=== PATIENT | male | born 1940 | race African-American/Black ===

== ENCOUNTER 2021-01-15 23:40 | Inpatient (IN) | payer MEDICARE ==
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
[2021-01-16] MEDS ORDERED: ULTRAM50 MG PO (06:03)
[2021-01-16] MEDS ORDERED: THEREMS-M1 TAB PO (06:04)
[2021-01-16] MEDS ORDERED: MIRALAX17 GM PO (06:06)
[2021-01-16] MEDS ORDERED: DONEPEZIL HCL5 MG PO (06:06)
[2021-01-16] MEDS ORDERED: COREG25 MG PO (06:09)
[2021-01-16] MEDS ORDERED: LIPITOR40 MG PO (06:10)
[2021-01-16] MEDS ORDERED: LOW DOSE ASPIRI81 M1 PO (06:11)
[2021-01-16] MEDS ORDERED: NORVASC5 MG PO (06:12)
[2021-01-16] MEDS ORDERED: VITAMIN D325 MC1 PO (06:13)
[2021-01-16 07:30] VITALS: BP 124/81
--- NOTE | 2021-01-16 07:30 | NUR ---
SARS-19 SWAB COLLECTED. PT TOLERATED WELL. PT WAS CALM WITH COLLECTION.
[2021-01-16 07:56] LABS: BASOPHILS 0.8 % (0-2); EOSINOPHILS 4.8 % (0-7); HEMATOCRIT 36.3 % (42.0-54.0); IMMATURE GRANULOCYTES 0.1 % (0-5); LYMPHOCYTE ABS# 2.98 10x3/uL (1.32-3.57); LYMPHOCYTES 40.7 % (15-50); MCH 30.1 pg (26.0-34.0); MCHC 33.1 g/dL (31.0-37.0); MEAN PLATELET VOLUME 11.9 fL (7.4-10.4); NEUTROPHIL ABS# 3.26 10x3/uL (1.78-5.38); NEUTROPHILS 44.6 % (40-80); PLATELET COUNT 169 10x3/uL (130-400); RBC 3.99 10x6/uL (4.20-6.10); RDW 14.7 % (11.5-14.5); WBC 7.3 10x3/uL (4.8-10.8)
[2021-01-16 08:00] VITALS: BP 101/54
[2021-01-16 08:39] LABS: SARS-CoV-2 ANTIGEN NEGATIVE- SARS-COV-2 (NEGATIVE)
[2021-01-16 08:46] LABS: CHOL - HDL RATIO 1.9 ratio (2.3-4.9); LDL-HDL RATIO 0.7 ratio (1.5-3.5)
[2021-01-16 09:28] LABS: ALBUMIN 3.3 g/dL (3.4-5.0); ALKALINE PHOSPHATASE 113 U/L (30-120); ALT (SGPT) 49 U/L (10-68); BILIRUBIN - TOTAL 0.64 mg/dL (0.2-1.3); CALC OSMOLALITY 288 mosm/kg (275-300); CALCIUM 8.9 mg/dL (8.5-10.1); CARBON DIOXIDE 27.8 mmol/L (21.0-32.0); CHLORIDE - SERUM 107 mmol/L (98-107); GLUCOSE 100 mg/dL (74-106); POTASSIUM - SERUM 3.8 mmol/L (3.5-5.1); PROTEIN - SERUM 6.9 g/dL (6.4-8.2); SODIUM 144 mmol/L (136-145); UREA NITROGEN 18 mg/dL (7-18); eGFR NON AFRICAN AMERICAN 76 mL/min (90-120)
[2021-01-16 12:54] LABS: BILIRUBIN NEGATIVE (NEGATIVE); KETONE NEGATIVE (NEGATIVE); NITRITE NEGATIVE (NEGATIVE); UROBILINOGEN NORMAL mg/dL (< 2)
--- NOTE | 2021-01-16 15:04 | NUR ---
NURSE SPOKE WITH JUAN DANIEL PT DAUGHTER IN LAW AT THIS TIME. SHE STATED SHE DID NOT RECIEVE A PHONE CALL FROM THE PREVIOUS SHIFT STATING HE ARRIVED SOME TIME DURING THE NIGHT. NURSE SPOKE WITH JUAN DANIEL PRIOR TO ADMISSION ON 01/15/21. SHE AND PT SON BRODERICK RICKS JR GAVE CONSENT TO NURSE FOR ADMISSION. NURSE GAVE PASSCODE OF 0733. SHE STATED FAMILY MEMBERS ARE EAGER TO SEE HOW HE IS DOING. NURSE EDUCATED ON PHONE TIMES AT THIS TIME. SHE VERBALIZIED UNDERSTANDING.
--- NOTE | 2021-01-16 15:29 | NUR ---
PT SITTING AND SOCIALIZING WITH PEERS. PT IS CALM AND COOPERATIVE. CONFUSION NOTED. ALERT TO SELF ONLY. REDIRECT AND REORIENT NEEDED. REDIRECT AND REORIENT NEEDED. CONTS TO EXPERIENCE LEG CRAMPS. ACTIVE ROM PROVIDED. PT RIGHT KNEE POPPED. DENIES PAIN. CAN MAKE NEEDS KNOWN. AMBULATES. COMPLIANT WITH VITALS AND ASSESSMENTS. WILL CONT PLAN OF CARE. URINE COLLECTED BEDSIDE WITH CLEAN TECHINQUE.
[2021-01-16 20:00] VITALS: BP 133/74
--- NOTE | 2021-01-17 01:56 | NUR ---
B)RECEIVED PATIENT IN HIS ROOM. DID COME AND SIT WITH PEERS OUTSIDE THE NURSE'S STATION. ORIENTED TO SELF ONLY. DIFFICULTY FOLLOWING TOPIC OF CONVERSATION. 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 AMBULATORY ON THE UNIT. I)ADMINISTER MEDS AND MONITOR COMPLIANCE. REORIENT NEEDED. R)MED COMPLIANT. POOR REORIENTATION . DIFFICULTY FOLLOWING TOPIC OF CONVERSATION AND PROCESSING INFORMATION. NO AGGRESSION NOTED THIS SHIFR. P)CONTINUE POC AND PROVIDE SAFE ENVIRONMENT.
[2021-01-17 07:30] VITALS: BP 111/60
--- NOTE | 2021-01-17 08:00 | NUR ---
RECEIVED PATIENT IN BED WITH EYES OPEN. PATIENT IS CALM AND COOPERATIVE WITH ASSESSMENT AT THIS TIME. CONFUSION NOTED. PATIENT IS AWAKE AND ALERT TO SELF ONLY. NO AGGRESSION OR BEHAVIORS NOTED AT THIS TIME. REDIRECT AND REORIENT NEEDED. PRESCRIBED MEDICATIONS PROVIDED ORDERED. MED COMPLIANT AT THIS TIME. PATIENT IS ABLE TO MAKE NEEDS KNOWN TO STAFF. PATIENT IS ABLE TO AMBULATE. PATIENT IS CONTINENT. FALL PRECAUTIONS IN PLACE FOR SAFETY. WILL CONTINUE PLAN OF CARE.
--- NOTE | 2021-01-17 19:30 | NUR ---
RECEIVED IN BEDROOM. RESTING IN BED WITH EYES OPEN. STATES HE IS CONFUSED AND DOESNT KNOW WHERE HE IS.CALM AND COOPERATIVE WITH CARE AND ASSESSMENT. NO SIGNS OF AGGRESSION. REDIRECT AND REORIENT NEEDED. CONTINUES TO REST QUIETLY IN BED. CONTINUE PLAN OF CARE.
[2021-01-17 20:00] VITALS: BP 129/74
[2021-01-18 08:08] LABS: RAPID PLASMA REAGIN Non Reactive (Non Reactive)
[2021-01-18 08:21] VITALS: BP 135/66
[2021-01-18 14:42] VITALS: Wt 94.7 kg
[2021-01-18 20:00] VITALS: BP 110/67
--- NOTE | 2021-01-18 22:57 | NUR ---
RECEIVED IN BEDROOM. RESTING QUIETLY IN BED WITH EYES OPEN. CONFUSED. CALM AND COOPERATIVE WITH CARE AND ASSESSMENT. NO SIGNS OF AGGRESSION. REDIRECT AND REORIENT NEEDED. RESTING IN BED WITH EYES CLOSED AT THIS TIME. CONTINUE PLAN OF CARE.
--- NOTE | 2021-01-19 14:24 | NUR ---
RECEIVED PATIENT SITTING IN HALLWAY IN A CHAIR BY NURSES STATION. AWAKE AND ALERT TO PERSON. CONFUSION NOTED. CALM AND OOPERATIVE WITH ASSESSMENT AT THIS TIME. PRESCRIBED MEDICATION PROVIDED ORDERED. MED COMPLIANT AT THIS TIME. PATIENT HAS LITTLE INSIGHT INTO HIS SITUATION AT THIS TIME. REDIRECT AND REORIENT NEEDED. NO AGGRESSION NOTED. FALL PRECAUTIONS IN PLACE FOR SAFETY. WILL CPOC.
[2021-01-19 20:00] VITALS: BP 108/68
--- NOTE | 2021-01-19 23:23 | NUR ---
B)RECEIVED PATIENT LYING IN BED. ORIENTED TO SELF ONLY. GOOD EYE CONTACT. EDEMA TO LOWER EXTS AND WHEN NURSE REMOVED HIS SOCKS HE RELATED "THOSE ARE MY GIRLFRIENDS SOCKS. 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 COOPERATIVE WITH STAFF REQUEST. I)ADMINISTER MEDS AND MONITOR COMPLIANCE. REORIENT NEEDED. R)MED COMPLIANT. POOR REORIENTATION. DIFFICULTY WITH COMPREHENDING PROCESSING AND RETAINING INFORMATION. P)CONTINUE POC AND PROVIDE SAFE ENVIRONMENT.
[2021-01-20 08:19] VITALS: BP 110/76
--- NOTE | 2021-01-20 10:54 | NUR ---
Nutrition Re-Assessment Diet: Regular TAD Large portions PO intake: ~93% average x last 9 meals Last BM: 01/17/21 Wt: 180# (01/18/21); Admit Wt: 181# (01/16/21) Meds and labs reviewed Estimated nutrition needs: 1625-2050cal (20-25kcal/kg Act), 65-82gms protein (0.8-1), 2050-2450mL fluid (or per MD) Nutrition diagnosis: Potential for inadequate energy intake r/t AMS and advanced age. Nutrition goals: -PO intake to continue >75% meals -Meet fluid needs -Stable weight DHS Recommendations/Interventions: -Recommend continue current diet. Will continue to honor food preferences within diet restrictions. -RD will follow-up within 7 days.
--- NOTE | 2021-01-20 16:31 | NUR ---
pt confused. alert to self only. pt is calm and cooperative with staff. easy to redirect. pt is compliant with meds, vitals and assessments. no aggressive behavior noted. pt does not touch wet area noted to neck. nurse will clean area and apply a bandage to area. ambulates. requires assistance with adls. will cont plan of care. will cont plan of care.
[2021-01-20 20:00] VITALS: BP 97/58
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
[2021-01-21 09:17] VITALS: BP 116/73
--- NOTE | 2021-01-21 11:26 | NUR ---
Another patient walked up to this patient and stood beside him and this patient stated "What do you want?..get outta here"!
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
--- NOTE | 2021-01-21 15:20 | NUR ---
pt sitting on couch at this time. pt is calm and alert to self only. confusion noted. paranoid and suspicious of one other pt. constantly redirect pt from other male. no aggressive behavior noted. verbally aggressive statements noted. redirected pt behavior. compliant with meds, vitals and assessments. can make needs known. ambulates. Tina Haskins rn redressed wound to pt neck. drainage noted. pt denies pain. will cont plan of care.
[2021-01-21 19:27] VITALS: BP 112/63
--- NOTE | 2021-01-22 04:24 | NUR ---
B)RECEIVED PATIENT SITTING IN THE DAYROOM WITH PEERS. ORIENTED TO SELF ONLY. INTERACTING HOWEVER IS AVOIDANT OF 1127. DELUSIONAL AND REPORTS SOME OF THE CLOTHES IN HIS ROOM BELONG TO HIS GIRLFRIEND. COOPERATIVE AND PLEASANT. I)ADMINISTER MEDS AND MONITOR COMPLIANCE. REORIENT NEEDED. R)MED COMPLIANT. POOR REORIENTATION DUE TO IMPAIRED ABILITY TO COMPREHEND, PROCESS AND RETAIN INFORMATION. P)CONTINUE POC AND PROVIDE SAFE ENVIRONMENT.
[2021-01-22 08:48] VITALS: BP 96/67
--- NOTE | 2021-01-22 13:27 | NUR ---
PT SITTING NEAR OTHER PTS AT THIS TIME. PT IS CALM AND COOPERATIVE WITH STAFF. CONFUSION NOTED. ALERT TO SELF ONLY. REDIRECT AND REORIENT NEEDED. NO AGGRESSIVE STATEMENTS NOTED. AMBUALTES. CAN MAKE SOME NEEDS KNOWN. CONT TO CLEAN AND DRESS AREA TO RIGHT SIDE OF NECK. PT IS COMPLIANT WITH WHOLE MEDS, VITALS AND ASSESSMENTS. NO AGGRESSIVE BEHAVIOR NOTED. PT TENDS TO ISOLATE AND CAN BE DELUSIONAL ABOUT CERTAIN SITUATIONS WHEN ASKED. CONT TO REORIENT AND REDIRECT. WILL CONT PLAN OF CARE.
--- NOTE | 2021-01-22 16:47 | NUR ---
blood pressure: 123/81. p: 96
[2021-01-22 20:08] VITALS: BP 125/74
--- NOTE | 2021-01-22 20:54 | NUR ---
PT IS ALERT AND ORIENTED TO SELF ONLY. RECEIVED IN HIS ROOM CONFUSED AND PACING AT TIMES. COOPERATIVE WITH STAFF. COMPLIANT WITH ALL MEDICATIONS. EASY TO REDIRECT BUT REQUIRES CONSTANT REDIRECTION. ABCESS ON RIGHT SIDE OF HIS NECK IS DRAINING AND DRESSING IS FOUND IN THE FLOOR. HE STATES "I TOOK IT OFF" DECLINES A NEW DRESSING. ABLE TO VOICE NEEDS AND WANTS. MONITOR FOR SAFETY.
[2021-01-23 07:35] VITALS: BP 118/80
--- NOTE | 2021-01-23 12:58 | NUR ---
SOCIALIZING WITH PEERS.ORIENTED TO SELF ONLY.ATTEMPTS TO REORIENT WITH POOR RESULTS.COMPLIANT WITH MEDS AND SELF.NO AGGRESSION OBSERVED TODAY.WILL CONTINUE WITH CURRENT PLAN OF CARE,MONITOR FOR CHANGES AND SAFETY.
[2021-01-23 19:52] VITALS: BP 99/51
--- NOTE | 2021-01-23 21:26 | NUR ---
PT IS ALERT AND ORIENTED TO SELF ONLY. RECEIVED IN ROOM RESTING IN BED WITH EYES OPEN. CALM AND COOPERATIVE WITH STAFF. EXPRESSES APPRECIATION FOR CARE. COMPLIANT WITH ALL MEDICATIONS. DRESSING STILL INTACT TO RIGHT SIDE OF NECK. EASY TO REDIRECT. NO AGGRESSION NOTED AT THIS TIME. MONITOR FOR SAFETY.
[2021-01-24 07:30] VITALS: BP 111/75
--- NOTE | 2021-01-24 08:30 | NUR ---
RECEIVED IN PATIENT ROOM. SITTING ON SIDE OF BED. CALM AND COOPERATIVE WITH CARE AND ASSESSMENT. NO AGGRESSIVE BEHAVIORS THIS MORNING. SOCIALIZES AND TRIES TO HELP OTHER PATIENTS. REDIRECT AND REORIENT NEEDED. EATING BREAKFAST AT THIS TIME. CONTINUE PLAN OF CARE.
--- NOTE | 2021-01-24 14:05 | NUR ---
Patient rec'd this am sitting up in the hallway. He sat with the group this morning and participated well in group. He becomes easily upset and nervous when the other patients are uncooperative. He has limited eye vision and is [place]. 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 It weeps blood and clear fluids at times,Dressing changes are done q. shift and PRN. He, per observation, likes to pick at the dressings and tape till they fall off. He is med compliant and takes meds whole. He is A/O with some confusion and aggitation at times. He is directable and can be redirectable. He has been calm but did demonstrate a moment of aggravation with another patient and that patients alarm.
--- NOTE | 2021-01-24 19:40 | NUR ---
RECEIVED IN DAYROOM. WALKING ABOUT SOCAILIZING WITH STAFF AND PEERS. CALM AND COOPERATIVE WITH CARE AND ASSESSMENT. NO SIGNS OF AGGRESSION. REDIRECT AND REORIENT NEEDED. SITTING IN A CHAIR IN HALLWAY WITH PEERS AT THIS TIME. CONTINUE PLAN OF CARE.
[2021-01-24 20:20] VITALS: BP 112/58
[2021-01-25 08:00] VITALS: BP 115/67
--- NOTE | 2021-01-25 15:57 | NUR ---
CONFUSED AND DISORIENTED.QUITE,KEEPS TO SELF MOST OF THE TIME,BUT IS COMPLIANT WITH STAFF AND MEDS.MEDS TAKEN WHOLE.AMBULATES WITH FAIRLY STEADY GAIT.NO AGGRESSION OBSERVED.WILL CONTINUE WITH CURRENT PLAN OF CARE,MONITOR FOR CHANGES AND SAFETY.
--- NOTE | 2021-01-25 19:35 | NUR ---
B)RECEIVED PATIENT SITTING OUTSIDE THE NURSE'S STATION. ORIENTED TO SELF ONLY. SOCIALIZING WITH PEERS. NO INSIGHT INTO THE REASON FOR HOSPITALIZATION. CALM AND COOPERATIVE WITH STAFF. I)ADMINISTER MEDS AND MONTOR COMPLIANCE. REORIENT NEEDED. R)MED COMPLIANT. POOR REORIENTATION DUE TO IMPAIRED ABILITY TO RETAIN INFORMATION. P)CONTINUE POC AND PROVIDE SAFE ENVIRONMENT.
[2021-01-25 20:00] VITALS: BP 101/67
[2021-01-26 08:02] VITALS: BP 105/73
--- NOTE | 2021-01-26 17:34 | NUR ---
CONFUSED,ORIENTED TO SELF.IS COMPLIANT WITH STAFF AND MEDS.NO AGGRESSION OBSERVED.WILL CONTINUE WITH CURRENT PLAN OF CARE,MONITOR FOR CHANGES AND SAFETY.
[2021-01-26 20:15] VITALS: BP 101/62
--- NOTE | 2021-01-27 03:04 | NUR ---
B) Patient is alert and oriented to self, very confused , calm and cooperative, I) Administered scheduled medications as ordered, monitored for safety, showered patient, R) Mediation compliant, resting quietly in his bed now. P) Continue plan of care.
[2021-01-27 08:00] VITALS: BP 95/55
--- NOTE | 2021-01-27 08:11 | NUR ---
Error in documentation on the EMAR. BP meds not given this am as this am BP was read as 95/55.
--- NOTE | 2021-01-27 10:25 | NUR ---
Nutrition Re-Assessment Diet: Regular TAD large portions PO intake: 75-100% Last BM: 01/26/21 x 2 Wt: 175.6# (01/24/21); Admit Wt: 181# (01/16/21)- noted -5.4# wt change. PO intake has been adequate. Meds and labs reviewed Estimated nutrition needs: 1625-2050cal (20-25kcal/kg Act), 65-82gms protein (0.8-1gms/kg), 2050-2450mL fluid (or per MD) Nutrition diagnosis: Potential for inadequate energy intake r/t AMS and advanced age. Nutrition goals: -PO intake >75% meals -Meet fluid needs -Stable weight DHS Recommendations/Interventions: -Recommend continue current diet. Will continue to honor food preferences within diet restrictions. -RD will follow-up within 7 days.
--- NOTE | 2021-01-27 14:52 | NUR ---
Rec'd patient this am up in [address] in a reclining w/c. He is lying with his eyes closed and snoring. He is med compliant and takes meds whole. He is offered Glucerna prn and he will consume 100% of supplement. He is a/o times 1 to person . He has shown no aggressive behaviors today but has sat and slept most of the day. He is redirectable and directable most of the time. He particpated very little with educational group today.
--- NOTE | 2021-01-27 15:22 | PN ---
PATIENT:BRODERICK RICKS MEDICAL RECORD: [id number] LOCATION:[facility] Camacho ADMISSION DATE: 01/15/21 PROGRESS NOTE DATE OF SERVICE: 01/26/2021 SUBJECTIVE: The patient's case was discussed with staff. He has no new complaint. OBJECTIVE: The patient is disorganized and only oriented to person. He is eating and sleeping reasonably well. ASSESSMENT: Dementia. PLAN: Current medicines and therapies have been reviewed and will be maintained. I am going to discontinue the Geodon secondary to the improvement in his behaviors. TRANSINT:[id number] Voice Confirmation ID: [id number] DOCUMENT ID: [id number] FAIZAN BROWN MD at 1522 CC: [id number] DICTATION DATE: 01/26/21 1611 PACKAGING SUPERVISOR: 01/27/21 [address] [facility] [address] [place] [address]
--- NOTE | 2021-01-27 15:22 | PN ---
PATIENT:BRODERICK RICKS MEDICAL RECORD: [id number] LOCATION:[facility] Camacho ADMISSION DATE: 01/15/21 PROGRESS NOTE DATE OF SERVICE: 01/25/2021 SUBJECTIVE: The patient's case was discussed with staff. He has no new complaint. OBJECTIVE: The patient is sleeping reasonably well. He has limited insight about his situation. He has not been aggressive today. ASSESSMENT: Dementia. PLAN: Current medicines have been reviewed. The patient's BuSpar will be discontinued. TRANSINT:[id number] Voice Confirmation ID: [id number] DOCUMENT ID: [id number] FAIZAN BROWN MD at 1522 CC: [id number] DICTATION DATE: 01/25/21 1505 SHEET ROCK SANDER: 01/27/21 0033 ADM IN [facility] [address] [place] [address]
--- NOTE | 2021-01-27 15:24 | NUR ---
Area to right side of neck dressed with a non-adhereing dressing and taped in place. The area resembles calliflower and it has reddened areas and then areas inside it that bleed bright blood. He also has an area to both sides of his face. He denies tenderness but says they drain "alot"'
[2021-01-27 20:00] VITALS: BP 126/76
--- NOTE | 2021-01-27 21:19 | NUR ---
PT IS ALERT AND ORIENTED TO SELF AND PLACE. RECEIVED IN DAYROOM SOCIALIZING WITH PEERS. CALM AND COOPERATIVE WITH STAFF. EXPRESSES APPRECIATION FOR CARE TO STAFF MEMBERS. NO AGGRESSION NOTED. COMPLIANT WITH ALL MEDICATIONS. PROVIDED HS SNACK AND SUPPLEMENT. EASY TO REDIRECT. MONITOR FOR SAFETY.
--- NOTE | 2021-01-28 11:29 | NUR ---
ALERT ,CALM, COOPERATIVE, NO AGGRESSION NOTED THUS FAR THIS SHIFT. MEDS ADMIN PER ORDERS WITH NO ADVERSE REACTION NOTED. TAKES MEDS WHOLE WITHOUT DIFFICULTY. CONTINUE PLAN OF CARE OUTLINED.
[2021-01-28 11:58] VITALS: BP 124/67
--- NOTE | 2021-01-28 15:24 | PN ---
PATIENT:BRODERICK RICKS MEDICAL RECORD: [id number] LOCATION:ITZEL HernandezBritniChristine ADMISSION DATE: 01/15/21 PROGRESS NOTE DATE OF SERVICE: 01/27/2021 SUBJECTIVE: The patient's case was discussed with staff. He has no new complaint. OBJECTIVE: The patient is in good behavioral control. He is sleeping and eating well. His antipsychotic medications have been stopped for 2 days with no apparent return of the aggressive behaviors. His Aricept is going to be increased to 10 mg at bedtime. TRANSINT:[id number] Voice Confirmation ID: [id number] DOCUMENT ID: [id number] FAIZAN BROWN MD at 1524 CC: [id number] DICTATION DATE: 01/27/21 1645 BELLHOP: 01/28/[address] [facility] [address] [place] [address]
[2021-01-28 20:00] VITALS: BP 102/63
--- NOTE | 2021-01-28 20:54 | NUR ---
RECEIVED PATIENT IN DAYROOM SITTING CALMLY WITH OTHER PATIENTS, PLEASANT, COMPLIANT WITH MEDS, NO ADVERSE REACTION NOTED TO MEDS. ABLE TO MAKE ALL NEEDS AND CONCERNS KNOWN. WILL FOLLOW POC
[2021-01-29 08:04] VITALS: BP 98/68
--- NOTE | 2021-01-29 10:18 | NUR ---
Rec'd this am up ambulatory in [facility]. He is med compliant and takes his meds whole without difficulty. He is A/O times 2 to person and situation. He has shown no signs of aggression to staff or patients so far this am. He becomes easily upself at times when other patients are loud or there is a lot of noise. He has been calm and cooperative this am. He has sat in group this morning and napped, quietly. 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 The ulcer to the neck to large and califlower looking with areas of raw tissue with can become bloody at times. area is cleaned and covered with a dry dressing q. shift and as needed.
[2021-01-29 11:32] VITALS: BP 98/68
[2021-01-29 20:00] VITALS: BP 96/46
--- NOTE | 2021-01-29 23:14 | NUR ---
RECEIVED PATIENT IN DAYROOM SITTING CALMLY AND QUIETLY AMONG OTHER PATIENTS, HE IS CONFUSED, COMPLIANT WITH MEDS, NO AGGRESSION NOTED. WILL FOLLOW POC
[2021-01-30 10:36] VITALS: BP 119/73
--- NOTE | 2021-01-30 11:13 | NUR ---
PT SITTING AT THE TABLE QUIET AT THIS TIME. CALM AND COOPERATIVE. PT IS FRIENDLY WITH STAFF. CONFUSED. ALERT TO SELF ONLY. REDIRECT AND REORIENT NEEDED. CAN MAKE NEEDS KNOWN. NO AGGRESSIVE BEHAVIOR NOTED. COMPLIANT WITH ALL MEDS, VITALS AND ASSESSMENTS. AMBULATES. WILL CONT PLAN OF CARE.
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
--- NOTE | 2021-01-30 13:56 | NUR ---
Alert, calm, cooperative, quite confused. Meds admin per orders with no adverse reaction. No aggression noted, quite pleasant. Very poor short-term memory. Stated that he was from [place], [place] but was unable to say where in [facility] was located. Continue POC, monitoring for aggression.
[2021-01-30 20:00] VITALS: BP 127/50
--- NOTE | 2021-01-31 00:20 | NUR ---
B)RECEIVED PATIENT AT NURSE'S STATION RELATING I'M GOING TO MY ROOM" AND WAS SMILING. CONFUSED AND DISORIENTED. INTERACTIVE WITH PEERS HOWEVER AT TIMES WILL STAY IN HIS ROOM. LABILE BEHAVIOR. WILL BE COOPERATIVE THEN WILL MAKE THREATENING GESTURES WITH REDIRECTION. INCONTINENT AND CHANGES CLOTHES THROWING WET ONES IN THE FLOOR WOTHOUT ALERTING STAFF. FORGETFUL IE ASKS NURSE WHERE IS HIS CLOTHES. NURSE INFORMED PATIENT SHE HAD TAKEN THEM TO HIS ROOM AND ASKED IF HE HAD WET HIMSELF AND CHANGED CLOTHES. PATIENT DENIED CHANGING CLOTHES TODAY. ALL CLOTHES WERE IN THE LAUNDRY. I)ADMINISTER MEDS AND MONITOR COMPLIANCE. ENCOURAGE PATIENT TO LET STAFF KNOW WHEN HE NEEDS CLEAN INCONTINENT BRIEFS OR CLOTHES. R)MED COMPLIANT. AGREES TO LET STAFF KNOW HOWEVER WHEN HIS ROOM IS CHECKED HE WILL HAVE THROWN SOILED CLOTHING IN THE BATHROOM FLOOR OR IN A PAPER SACK. ALSO URINE NOTED IN THE FLOOR. P)CONTINUE POC AND PROVIDE SAFE ENVIRONMENT.
[2021-01-31 07:30] VITALS: BP 115/75
--- NOTE | 2021-01-31 17:36 | NUR ---
RECEIVED IN PATIENT ROOM. GETTING READY TO START THE DAY. CALM AND COOPERATIVE WITH CARE AND ASSESSMENT. NO AGGRESSIVE BEHAVIOR. REDIRECT AND REORIENT NEEDED. EATING DINNER AT THIS TIME. CONTINUE PLAN OF CARE.
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
--- NOTE | 2021-01-31 23:07 | NUR ---
RECEIVED IN HALLWAY OUTSIDE OF NURSES STATION. SOCIAL WITH PEERS. CALM AND COOPERATIVE WITH CARE AND ASSESSMENT. NO SIGNS OF AGGRESSION. REDIRECT AND REORIENT NEEDED. RESTING IN BED WITH EYES CLOSED AT THIS TIME. CONTINUE PLAN OF CARE.
[2021-01-31 23:36] VITALS: BP 127/69
[2021-02-01 07:30] VITALS: BP 122/77
--- NOTE | 2021-02-01 12:15 | NUR ---
RECEIVED IN PATIENT ROOM. SITTING ON SIDE OF BED. CALM AND COOPERATIVE WITH CARE AND ASSESSMENT. NO AGGRESSIVE BEHAVIOR TODAY. DOES GET AGITATED WITH OTHER CONFUSED WANDERING PATIENTS. REDIRECT AND REORIENT NEEDED. EATING LUNCH AT THIS TIME. CONTINUE PLAN OF CARE.
--- NOTE | 2021-02-01 19:34 | NUR ---
RECEIVED IN HALLWAY. SITTING IN A CHAIR WITH PEERS AT HIS SIDE. SOCIAL. CALM AND COOPERATIVE WITH CARE AND ASSESSMENT. NO SIGNS OF AGGRESSION. REDIRECT AND REORIENT NEEDED. CONTINUES TO SIT IN HALLWAY WITH PEERS. CONTINUE PLAN OF CARE.
[2021-02-01 23:05] VITALS: BP 113/55
[2021-02-02 08:00] VITALS: BP 131/74; BP 95/65
--- NOTE | 2021-02-02 09:08 | NUR ---
REC'D PT IN HALLWAY SOCIALIZING WITH PEERS. AWAKE AND ALERT TO PERSON ONLY. CALM AND COOPERATIVE WITH ASSESSMENT. PRESCRIBED MEDICATIONS PROVIDED ORDERED. MED COMPLIANT. REDIRECT AND REORIENT NEEDED. NO AGGRESSION NOTED AT THIS TIME. FALL PRECAUTIONS IN PLACE. WILL CPOC.
--- NOTE | 2021-02-02 10:48 | PN ---
PATIENT:BRODERICK RICKS MEDICAL RECORD: [id number] LOCATION:ITZEL Camacho ADMISSION DATE: 01/15/21 PROGRESS NOTE DATE OF SERVICE: 01/28/2021 SUBJECTIVE: The patient's case was discussed with staff. He has no new complaint. OBJECTIVE: The patient is in good behavioral control with limited insight about his situation. He does tolerate his medicines well. ASSESSMENT: Dementia. PLAN: Current medicines have been reviewed and will be maintained. Long-term prognosis is guarded. TRANSINT:[id number] Voice Confirmation ID: [id number] DOCUMENT ID: [id number] FAIZAN BROWN MD at 1048 CC: [id number] DICTATION DATE: 01/28/[address] REPORTER: 01/28/21 1654 ADM IN [facility] [id number] [place] [address]
--- NOTE | 2021-02-02 21:05 | NUR ---
RECEIVED IN HALLWAY OUTSIDE OF NURSES STATION. CALM AND COOPERATIVE WITH CARE AND ASSESSMENT. NO SIGNS OF AGGRESSION. REDIRECT AND REORIENT NEEDED. RESTING QUIETLY IN BED AT THIS TIME. CONTINUE PLAN OF CARE.
[2021-02-02 21:41] VITALS: BP 112/75
[2021-02-03 08:00] VITALS: BP 157/64
--- NOTE | 2021-02-03 10:07 | NUR ---
Nutrition Re-Assessment Diet: Regular Large portions PO intake: 100% x last 12 meals Last BM: 02/02/21 Wt: 179# (01/31/21); Admit Wt: 181# (01/16/21) Meds and labs reviewed Estimated nutrition needs: 1625-2050cal (20-25kcal/kg Act), 65-82gms protein (0.8-1gms/kg), 2050-2450mL fluid (or per MD) Nutrition diagnosis: Potential for inadequate energy intake r/t AMS and advanced age. Nutrition goals: -PO intake =/>75% meals -Meet fluid needs -Stable weight DHS Recommendations/Interventions: -Recommend continue current diet. Will continue to honor food preferences. -Will continue to monitor PO intake and wt trend. -RD will follow-up within 7 days.
--- NOTE | 2021-02-03 12:41 | NUR ---
Rec'd patient this am sitting up in a chair in hallway. He is doing well. He is ambulatory. He is med compliant and took meds whole without difficulty. He is a/o to person, place, and situation but often will become confused with simple changes. He is most of the time calm and cooperative but will refuse ADL care/assistance. He has not demonstarted any aggressive or combative behaviors this am. He participated and sat in group/activities this am. He participated some but sat and napped. He is directable and redirectable. He has a large, bloody area to his right neck, a smaller abrased, open area under his right eye and an abrased,open area to his left cheek that resembles skin CA. areas cleansed with Normal saline, pat dried and covered with mepilex. Patient denies pain to areas.
--- NOTE | 2021-02-03 12:46 | PN ---
PATIENT:BRODERICK RICKS MEDICAL RECORD: [id number] LOCATION:[facility] ADMISSION DATE: 01/15/21 PROGRESS NOTE DATE OF SERVICE: 02/02/2021 SUBJECTIVE: The patient's case was discussed with staff. He has no new complaint. OBJECTIVE: The patient is calm and cooperative. He has no thoughts of harming himself or others. ASSESSMENT: Dementia. PLAN: The patient's Zoloft will be increased slightly. I anticipate he can be transitioned out of the hospital soon. TRANSINT:[id number] Voice Confirmation ID: [id number] DOCUMENT ID: [id number] FAIZAN BROWN MD at 1246 CC: [id number] DICTATION DATE: 02/02/21 164 ATTENDING ANESTHESIOLOGIST: 02/02/212006 ADM IN [facility] [address] [place] [address]
[2021-02-03] MEDS ORDERED: DONEPEZIL HCL10 MG PO (17:22)
[2021-02-03] MEDS ORDERED: ZOLOFT50 MG PO (17:22)
[2021-02-03] MEDS ORDERED: KLONOPIN0.5 MG PO (17:22)
[2021-02-03] MEDS ORDERED: VITAMIN D PO (17:23)
[2021-02-03] MEDS ORDERED: VITAMIN B-121000 MCG PO (17:23)
[2021-02-03] MEDS ORDERED: THERAGRAN M [BK1 TAB PO (17:23)
[2021-02-03 20:00] VITALS: BP 100/53
--- NOTE | 2021-02-04 02:43 | NUR ---
B)RECEIVED PATIENT LYING IN BED. ORIENTED TO SELF ONLY. PATIENT DID COME AND SIT OUTSIDE THE NURSE'S STATION AND WAS INTRACTIVE. CALM AND COOPERATIVE. I)ADMINISTER MEDS AND MONITOR COMPLIANCE. REORIENT NEEDED. R)MED COMPLIANT. POOR REORIENTATION DUE TO IMPAIRED ABILITY TO COMPREHEND, PROCESS AND RETAIN INFORMATION. P)CONTINUE POC AND PROVIDE SAFE ENVIRONMENT.
[2021-02-04 09:29] VITALS: BP 99/66
--- NOTE | 2021-02-04 10:45 | NUR ---
corrections caseworker contacted [id number], Steffanie, to discuss discharge plans. Cha Smith will orange picking supervisor patient on Monday or Monday. corrections caseworker will know by the end of the day to confirm pickup time. No other needs were voiced at this time. Steffanie voiced gratitude for services.
--- NOTE | 2021-02-04 14:06 | NUR ---
Rec'd patient this am ambulatory in [facility]. He is med compliant and takes meds whole. He is a/o times 3 to person, place, and situation. He sat in group/activities this am. He is directable and redirectable. 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 Areas covered daily with non stick telfa but patient will sat and pick the dressings off. He has been calm and cooperative. He has confusion. He can become aggressive when others, he feels,. he has been "pushed to hard".
--- NOTE | 2021-02-04 15:14 | PN ---
PATIENT:BRODERICK RICKS MEDICAL RECORD: [id number] LOCATION:[facility] ADMISSION DATE: 01/15/21 PROGRESS NOTE DATE OF SERVICE: 02/03/2021 SUBJECTIVE: The patient's case was discussed with staff. He has no new complaint. OBJECTIVE: The patient is in good behavioral control with limited insight about his situation. ASSESSMENT: Dementia. PLAN: The patient will be maintained on current medicines. I anticipate he can be transitioned out of the hospital tomorrow if this level of improvement continues. TRANSINT:[id number] Voice Confirmation ID: [id number] DOCUMENT ID: [id number] FAIZAN BROWN MD at 1514 CC: [id number] DICTATION DATE: 02/03/21 1719 SENIOR ENTERPRISE ARCHITECT: 02/04/21 0035 ADM IN [facility] [id number] [place] [address]
[2021-02-04 20:00] VITALS: BP 105/65
--- NOTE | 2021-02-04 23:00 | NUR ---
B)RECEIVED PATIENT SITTING OUTSIDE THE NURSE'S STATION. ORIENTED TO SELF ONLY. INTERACTIVE WITH PEERS AND STAFF. TRIES TO HELP OTHER PATIENTS. CALM AND COOPERATIVE. I)ADMINISTER MEDS AND MONITOR COMPLIANCE. REORIENT NEEDED. R)MED COMPLIANT. POOR REORIENTATION DUE TO IMPAIRED ABILITY TO COMPREHEND, PROCESS AND RETAIN INFORMATION. P)CONTINUE POC AND PROVIDE SAFE ENVIRONMENT.
[2021-02-05 10:11] VITALS: BP 114/64
--- NOTE | 2021-02-05 13:06 | NUR ---
Rec'd patient this am up in a chair in the hallway. He is ambulatory. He is a/o to person, place, and situation. He can become a little confused at times. He has not displayed any signs of aggression or aggitation so far this shift. He is med compliant and takes his meds whole without difficulty. He becomes easily attached to the female patients and always wants to "help them" in a positive manner. He sat with group this morning and participated some.
[2021-02-05 20:00] VITALS: BP 134/92
--- NOTE | 2021-02-05 22:11 | NUR ---
PT IS ALERT AND ORIENTED TO SELF ONLY. RECEIVED IN THE HALLWAY OUTSIDE THE NURSES STATION SOCIALIZING WITH PEERS. CALM AND COOPERATIVE WITH STAFF. ABLE TO VOICE NEEDS AND WANTS. EXPRESSES APPRECIATION FOR STAFF. COMPLIANT WITH ALL MEDICATIONS. EASY TO REDIRECT. MONITOR FOR SAFETY.
[2021-02-06 09:39] VITALS: BP 122/69
--- NOTE | 2021-02-06 18:13 | NUR ---
ALERT, CALM, VERY CONFUSED, POOR STM, COOPERATIVE. NO AGGRESSION NOTED, HOWEVER PATIENT CAN BE RUDE AT TIMES. MEDS ADMIN PER ORDERS WITH COMPLETE MED COMPLIANCE NOTED. NO ADVERSE REACTION TO MEDS. CONTINUE PLAN OF CARE.
--- NOTE | 2021-02-06 19:07 | NUR ---
WAS OBSERVED IN ARGUMENT WITH FEMALE PEER WHO HAD TOLD HIM TO LEAVE ANOTHER FEMALE PEER ALONG WHOM HE WAS TRYING TO HELP.THEY WERE BOTH OBSERVED KICKING AT EACH OTHERS FEET BEFORE THIS NURSE COULD SEPERATE THEM.THEY WERE SEPERATED AND REDIRECTED EASILY.NO OTHER NEGATIVE BEHAVIORS WERE OBSERVED .
[2021-02-06 22:23] VITALS: BP 108/72
--- NOTE | 2021-02-06 23:06 | NUR ---
PT IS ALERT AND ORIENTED TO SELF ONLY. CALM AND COOPERATIVE WITH STAFF. RECEIVED IN HIS BEDROOM LAYING IN BED WITH EYES CLOSED. COMPLIANT WITH ALL MEDICATIONS. ABLE TO VOICE NEEDS AND WANTS. NO AGGRESSION NOTED. MONITOR FOR SAFETY.
[2021-02-07 09:21] VITALS: BP 103/63
--- NOTE | 2021-02-07 16:56 | NUR ---
Patient rec'd this am sitting in a chair in the hallway. He is a/o to person, place, and time. He is med compliant and takes his meds whole without difficulty. He has displayed no signs of aggression to any other patients and has not been combative with staff. He will occ. get somewhat aggitated with another patient but will not be physically aggressive..he just mumbles. He has been calm and cooperative with staff. He continues to have the large ulcer to his right neck, right area under eye, and area near left cheek. He sat with the group but visited and socialized more with one specific lady patient. He Patient had daily dressings to the skin ulcers but would not keep the dressings on. He discharged to prior living arrangements at [facility] rehab at approx. 3pm with all his clothing he had brought to hospital per inventory sheet. He left via rehab van with "yeny" the shuttle van driver. Report was called to Lashawn at the rehab and discharge paperwork was faxed 3 times. fax# [phone] and phone # [phone].
--- NOTE | 2021-02-08 14:39 | PN ---
PATIENT:BRODERICK RICKS MEDICAL RECORD: [id number] LOCATION:[facility] ADMISSION DATE: 01/15/21 PROGRESS NOTE DATE OF SERVICE: 02/04/2021 SUBJECTIVE: The patient's case was discussed with staff. He has no new complaint. OBJECTIVE: The patient is in good behavioral control. He has poor insight about his situation. ASSESSMENT: Dementia. PLAN: The patient cannot be discharged today because of transportation issues. Apparently, the van from [place] cannot come and get him until Monday. TRANSINT:[id number] Voice Confirmation ID: [id number] DOCUMENT ID: [id number] FAIZAN BROWN MD at 1439 CC: [id number] DICTATION DATE: 02/04/21 1544 FRONT END DRIVER: 02/04/21 2219 DIS IN 02/07/[address] [facility] [address] [place] [address]
== END 2021-02-07 16:56 | DRG 57 ==
LOC: D.PSYCH 23:40 → UNDOADMIN 01-16 00:01 → D.PSYCH 01-16 00:01
PROVIDERS: ADMIT Psychiatry & Neurology Psychiatry; ATTEND Psychiatry & Neurology Psychiatry
DX: G30.1 Alzheimer's disease with late onset (principal); F02.81 Dementia in other diseases classified elsewhere, unspecified severity, with behavioral disturbance; I10 Essential (primary) hypertension; I25.10 Atherosclerotic heart disease of native coronary artery without angina pectoris; E78.5 Hyperlipidemia, unspecified; I49.9 Cardiac arrhythmia, unspecified; C44.81 Basal cell carcinoma of overlapping sites of skin; E55.9 Vitamin D deficiency, unspecified; F41.9 Anxiety disorder, unspecified; K59.01 Slow transit constipation